=== PATIENT | female | born 1955 | race American Indian/Alaskan Native ===

== ENCOUNTER 2016-12-12 14:10 | Outpatient (CLI) | payer OTHER ==
--- NOTE | 2016-12-12 15:08 | Mammography Report ---
BILATERAL MAMMOGRAM: FINDINGS: The breast tissue is heterogeneously dense, which could obscure detection of small masses (approximately 50%-75% glandular). No mass, distortion, suspicious calcification, or skin change is seen. There are no significant changes when compared to her prior examination in 2015. CAD was utilized. IMPRESSION: Negative mammogram. There is no mammographic evidence of malignancy. RECOMMENDATION: Follow-up per ACS guidelines. BI-RADS CATEGORY: 1 = Negative ACR BI-RADS MAMMOGRAPHIC CODES: 0 = Needs additional imaging evaluation; 1 = Negative; 2 = Benign; 3 = Probably benign; 4 = Suspicious; 5 = Malignant; 6 = Known biopsy-proven malignancy COMMENT: 1. Dense breast tissue, i.e., adenosis, fibrocystic changes, etc., may obscure an underlying neoplasm. 2. Approximately 10% of cancers are not detected with mammography. 3. A negative mammography report should not delay biopsy if a clinically suspicious mass is present. COMMENT: Patient follow-up letters are generated in [facility].
== END 2016-12-12 14:11 | disposition home or self-care (01) ==
LOC: MAMMO 14:10
PROVIDERS: ATTEND Specialist
DX: Z12.31 Encounter for screening mammogram for malignant neoplasm of breast (principal)
CPT/HCPCS: 77067; G0202

== ENCOUNTER 2017-09-17 14:12 | Outpatient (CLI) | payer MEDICARE ==
--- NOTE | 2017-09-17 15:03 | Mammography Report ---
Left mammogram: Left chest and arm pain occasionally involving her breast. Routine views were obtained. Comparison is made to prior exams dating back to 2014. Screening exam in November 2016. The breast pattern is heterogeneously dense but no evidence of mass or architectural distortion. No interval change compared to prior exams. CAD used. Impression: Stable left mammogram. Recommendation: Clinical followup. Any additional evaluation at this time should be based in your concern. Otherwise, annual mammogram followup. BI-RADS CATEGORY: 1 = Negative ACR BI-RADS MAMMOGRAPHIC CODES: 0 = Needs additional imaging evaluation; 1 = Negative; 2 = Benign; 3 = Probably benign; 4 = Suspicious; 5 = Malignant; 6 = Known biopsy-proven malignancy COMMENT: 1. Dense breast tissue, i.e., adenosis, fibrocystic changes, etc., may obscure an underlying neoplasm. 2. Approximately 10% of cancers are not detected with mammography. 3. A negative mammography report should not delay biopsy if a clinically suspicious mass is present.
== END 2017-09-17 14:13 | disposition home or self-care (01) ==
LOC: MAMMO 14:12
PROVIDERS: ATTEND Internal Medicine Infectious Disease
DX: N64.4 Mastodynia (principal)

== ENCOUNTER 2019-03-25 09:56 | Outpatient (CLI) | payer MEDICARE ==
--- NOTE | 2019-03-28 10:00 | Mammography Report ---
DIGITAL SCREENING MAMMOGRAM WITH CAD, 03/25/2019 INDICATION: Routine screening mammography. TECHNIQUE: Digital bilateral 2D mammography was obtained in the craniocaudal and mediolateral obliq ue projections. This examination was interpreted with the benefit of Computer-Aided Detection analysi s. COMPARISON: 01/22/2015, 12/12/2016 FINDINGS: Breast Density: The breasts are heterogeneously dense, which may obscure small masses. There is no evidence of dominant mass, suspicious calcifications or architectural distortion in eithe r breast. IMPRESSION: BI-RADS Category 1: Negative. No mammographic evidence of malignancy. Recommend routine screening m ammography in one year. A "normal" or negative report should not discourage follow up or biopsy of a clinically significant f inding. A written summary of these findings will be mailed to the patient. The patient will be entered into a mammography reporting system which will generate a reminder letter for the patient's next appointmen t at the appropriate interval. The [employer] recommends yearly mammograms starting at age 40 and continuing as l john as a woman is in good health. Breast MRI is recommended for women with an approximate 20-25% or greater lifetime risk of breast cancer, including women with a strong family history of breast or ova ginette cancer or who have been treated for Hodgkin's disease. Signer Name: Eduin Melendez MD Signed: 03/28/2019 9:56 AM Workstation Name: [id number]
== END 2019-03-25 09:57 | disposition home or self-care (01) ==
LOC: MAMMO 09:56
PROVIDERS: ATTEND Specialist
DX: Z12.31 Encounter for screening mammogram for malignant neoplasm of breast (principal)
CPT/HCPCS: 77067